=== PATIENT | female | born 2000 | race Caucasian/White ===

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

== ENCOUNTER 2018-01-14 15:11 | Emergency (ER) | payer OTHER ==
[2018-01-14 15:36] VITALS: BP 131/65
[2018-01-14] MEDS ORDERED: DIPHENHYDRAMINE HCL 25 MG CAPSULE PO ONE (15:52)
[2018-01-14] MEDS ORDERED: FAMOTIDINE 20 MG TABLET PO ONE (15:52)
[2018-01-14] MEDS ORDERED: PREDNISONE 20 MG TABLET PO ONE (15:52)
--- NOTE | 2018-01-14 15:54 | ER Document Report ---
HPI - HPI Patient complains to provider of: wasp sting Onset: Other - 2:30 Onset/Duration: Persistent Quality of pain: Achy Pain Level: 2 Context: Patient states that she was stung to the left upper back area around 230 by a wasp. Patient states she has had allergic reactions to stings in the past. Patient states she took a single tablet of Benadryl at home. Patient complains of left upper back pain. Patient without any difficulty breathing or swallowing. Associated Symptoms: Other - Left upper back pain Exacerbated by: Movement Relieved by: Denies Similar symptoms previously: Yes Recently seen / treated by doctor: No - ROS ROS below otherwise negative: Yes Systems Reviewed and Negative: Yes All other systems reviewed and negative - CONSTITUTIONAL Constitutional: DENIES: Fever - CARDIOVASCULAR Cardiovascular: DENIES: Chest pain - RESPIRATORY Respiratory: DENIES: Trouble Breathing, Coughing - GASTROINTESTINAL Gastrointestinal: DENIES: Patient vomiting - MUSCULOSKELETAL Musculoskeletal: REPORTS: Back Pain - DERM Skin Color: Erythema Past Medical History - General Information source: Patient - Social History Smoking Status: Never Smoker Frequency of alcohol use: None Drug Abuse: None Occupation: None Lives with: Family Family History: Reviewed & Not Pertinent Patient has suicidal ideation: No Patient has homicidal ideation: No - Medical History Medical History: Negative Renal/ Medical History: Denies: Hx Peritoneal Dialysis Surgical Hx: Negative Vertical Provider Document - CONSTITUTIONAL Agree With Documented VS: Yes Exam Limitations: No Limitations General Appearance: WD/WN, No Apparent Distress - INFECTION CONTROL TRAVEL OUTSIDE OF THE [place] IN LAST 30 DAYS: No - HEENT HEENT: Atraumatic, Normal ENT Exam, Normocephalic Notes: No angioedema, no potential airway compromise - NECK Neck: Normal Inspection, Supple - RESPIRATORY Respiratory: Breath Sounds Normal, No Respiratory Distress - CARDIOVASCULAR Cardiovascular: Regular Rate, Regular Rhythm, No Murmur - BACK Back: Normal Inspection - MUSCULOSKELETAL/EXTREMETIES Musculoskeletal/Extremeties: ALVARO MADRID - NEURO Level of Consciousness: Awake, Alert, Appropriate Motor/Sensory: No Motor Deficit - DERM Integumentary: Warm, Dry Notes: Small patch of erythema to left upper back area measuring about 2 cm diameter, no hives, no urticaria Course - Vital Signs Vital signs: Temp Pulse Resp BP Pulse Ox 98.8 F 80 18 131/65 H 99 01/14/18 15:24 01/14/18 15:24 01/14/18 15:24 01/14/18 15:24 01/14/18 15:24 Discharge - Discharge Clinical Impression: Wasp sting Qualifiers: Encounter type: initial encounter Injury intent: undetermined intent Qualified Code(s): T63.464A - Toxic effect of venom of wasps, undetermined, initial encounter Condition: Stable Disposition: HOME, SELF-CARE Instructions: Use of Diphenhydramine, Insect Sting ([facility]), Steroid Medication Additional Instructions: Return immediately for any new or worsening symptoms Followup with your primary care provider, call tomorrow to make a followup appointment Take Benadryl [id number] with your symptoms Prescriptions: Epinephrine [Epipen 2-Esau] 0.3 mg IM ASDIR PRN #1 unit PRN Reason: Famotidine [Pepcid 20 mg Tablet] 20 mg PO BID #12 tablet Prednisone [Deltasone 10 mg Tablet] 10 mg PO ASDIR PRN #21 tablet PRN Reason: Referrals: [facility] [Provider Group] - Follow up as needed
== END 2018-01-14 16:06 | disposition home or self-care (01) ==
LOC: ER 15:11
DX: T63.461A Toxic effect of venom of wasps, accidental (unintentional), initial encounter (principal); M54.6 Pain in thoracic spine; X58.XXXA Exposure to other specified factors, initial encounter
CPT/HCPCS: 99282; J7512

== ENCOUNTER 2019-04-01 12:09 | Outpatient (CLI) | payer OTHER ==
--- NOTE | 2019-04-01 13:21 | Non Stress Test Report ---
Non Stress Test Datetime Report Generated by CPN: 04/01/2019 13:20 DEMOGRAPHIC Test Number: 1 EGA NST: 36.3 INDICATION Indication for Study: Ordered by Provider VITAL SIGNS Temperature - NST: 98.2 Pulse - NST: 89 RESP - NST: 16 NBPSYS NST: 116 NBPDIA NST: 65 MONITORING Monitor Explained: Monitor Explained; Test Explained; Patient Verbalized Understanding Time on Monitor: 04/01/2019 12:21 Time off Monitor: 04/01/2019 13:18 NST Duration: 57 NST INTERVENTIONS NST Interventions: PO Hydration Physician Notified NST: J. Cavazos, CNM BABY A: [id number] BABY A Movement : Present Contraction Frequency : 0 FHR Baseline : 150 Accelerations : 15X15 Decelerations : None Variability : Moderate 6-25bpm NST Review: Meets Criteria for Reactive NST NST Review and Verified By : Maribell Stanley RN NST Results: Reactive NST REPORT Report Trigger: Send Report
== END 2019-04-01 13:20 | disposition home or self-care (01) ==
LOC: LC 12:09
PROVIDERS: ATTEND Obstetrics & Gynecology
PROC: 4A1HXCZ Monitoring of Products of Conception, Cardiac Rate, External Approach (ICD-10-PCS; principal; 2019-04-01)
DX: Z34.83 Encounter for supervision of other normal pregnancy, third trimester (principal)
CPT/HCPCS: 59025

== ENCOUNTER 2019-04-17 00:21 | Outpatient (CLI) | payer OTHER ==
[2019-04-17 00:55] LABS: APPEARANCE,URINE CLEAR; BILIRUBIN,URINE NEGATIVE (NEGATIVE); COLOR,URINE YELLOW; GLUCOSE, URINE NEGATIVE (NEGATIVE); KETONES,URINE NEGATIVE (NEGATIVE); LEUKOCYTE ESTERASE,URINE TRACE (NEGATIVE); NITRITE,URINE NEGATIVE (NEGATIVE); PROTEIN,URINE NEGATIVE (NEGATIVE); URINE SPECIFIC GRAVITY 1.006; UROBILINOGEN,URINE NEGATIVE mg/dL (<2.0)
[2019-04-17 01:10] LABS: URINE AMPHETAMINES SCREEN NEGATIVE; URINE BARBITURATES SCREEN NEGATIVE; URINE BENZODIAZEPINES SCREEN NEGATIVE; URINE COCAINE SCREEN NEGATIVE; URINE MARIJUANA (THC) SCREEN NEGATIVE; URINE METHADONE SCREEN NEGATIVE; URINE PHENCYCLIDINE SCREEN NEGATIVE
--- NOTE | 2019-04-17 02:19 | Non Stress Test Report ---
Non Stress Test Datetime Report Generated by CPN: 04/17/2019 02:19 DEMOGRAPHIC EGA NST: 38.5 INDICATION Indication for Study: Ordered by Provider MONITORING Monitor Explained: Monitor Explained; Test Explained; Patient Verbalized Understanding Time on Monitor: 04/17/2019 00:40 Time off Monitor: 04/17/2019 01:13 NST Duration: 33 NST INTERVENTIONS NST Interventions: PO Hydration Physician Notified NST: Savage BABY A: [id number] BABY A Movement : Present Contraction Frequency : irregular FHR Baseline : 135 Accelerations : 15X15 Decelerations : None Variability : Moderate 6-25bpm NST Review: Meets Criteria for Reactive NST NST Review and Verified By : guru NAQVI Results: Reactive NST REPORT Report Trigger: Send Report
== END 2019-04-17 02:08 | disposition home or self-care (01) ==
LOC: LC 00:21
PROVIDERS: ATTEND Obstetrics & Gynecology
PROC: 4A1HXCZ Monitoring of Products of Conception, Cardiac Rate, External Approach (ICD-10-PCS; principal; 2019-04-17)
DX: O47.1 False labor at or after 37 completed weeks of gestation (principal); Z3A.38 38 weeks gestation of pregnancy
CPT/HCPCS: 59025; 80307; 81005; 84112

== ENCOUNTER 2019-05-07 05:46 | Emergency (ER) | payer OTHER ==
[2019-05-07] MEDS ORDERED: IBUPROFEN 600 MG TABLET PO ONE (07:00)
[2019-05-07 08:01] LABS: APPEARANCE,URINE SLIGHTLY-CLOUDY; BILIRUBIN,URINE NEGATIVE (NEGATIVE); COLOR,URINE YELLOW; GLUCOSE, URINE NEGATIVE (NEGATIVE); KETONES,URINE NEGATIVE (NEGATIVE); LEUKOCYTE ESTERASE,URINE MODERATE (NEGATIVE); NITRITE,URINE NEGATIVE (NEGATIVE); PROTEIN,URINE NEGATIVE (NEGATIVE); URINE SPECIFIC GRAVITY 1.016; UROBILINOGEN,URINE NEGATIVE mg/dL (<2.0)
[2019-05-07] MEDS ORDERED: CEPHALEXIN 500 MG CAPSULE PO ONE (09:01)
--- NOTE | 2019-05-07 09:08 | ER Document Report ---
ED General - General Chief Complaint: Low Back Pain Stated Complaint: LOWER BACK PAIN AND VOMITTING Time Seen by Provider: 05/07/19 07:00 TRAVEL OUTSIDE OF THE [place] IN LAST 30 DAYS: No - HPI Notes: This is a 19-year-old female who presents today with a complaint of lower back pain for the past 2 days. Patient also describes some urinary frequency and urgency. She denies any abdominal pain. She denies any trauma. She denies any bowel or bladder incontinence. She describes her symptoms as mild. Patient recently had a baby but she is not breast-feeding. No vaginal discharge or vaginal bleeding. She states she feels better now. - Related Data Allergies/Adverse Reactions: No Known Allergies Allergy (Verified 04/22/19 00:46) Past Medical History - Social History Smoking Status: Never Smoker Family History: Reviewed & Not Pertinent Patient has suicidal ideation: No Patient has homicidal ideation: No Renal/ Medical History: Denies: Hx Peritoneal Dialysis Review of Systems - Review of Systems Gastrointestinal: denies: Abdominal pain Genitourinary: Dysuria, Frequency Musculoskeletal: Back pain -: Yes All other systems reviewed and negative Physical Exam - Vital signs Vitals: Temp Pulse Resp BP Pulse Ox 98.4 F 71 18 146/100 H 100 05/07/19 05:51 05/07/19 05:51 05/07/19 05:51 05/07/19 05:51 05/07/19 05:51 - General General appearance: Appears well, Alert - Respiratory Respiratory status: No respiratory distress Chest status: Nontender Breath sounds: Normal Chest palpation: Normal - Cardiovascular Rhythm: Regular Heart sounds: Normal auscultation Murmur: No - Abdominal Inspection: Normal Distension: No distension Bowel sounds: Normal Tenderness: Nontender Organomegaly: No organomegaly - Back Back: Normal, Other - Slight paravertebral tenderness/spasms. No midline tenderness. No step-offs. Negative straight leg raise test. No saddle anesthesia. - Neurological Neuro grossly intact: Yes Cognition: Normal Orientation: AAOx4 Paige Coma Scale Eye Opening: Spontaneous [place] Coma Scale Verbal: Oriented [place] Coma Scale Motor: Obeys Commands [place] Coma Scale Total: 15 Speech: Normal Motor strength normal: LUE, RUE, LLE, RLE Sensory: Normal Course - Re-evaluation Re-evalutation: 05/07/19 08:06 Differential diagnosis includes lumbar strain versus UTI. 0856 Patient reevaluated. Patient is doing well. She feels much better. Urinalysis consistent with UTI. We will put her on Keflex. She is stable for discharge. - Vital Signs Vital signs: Temp Pulse Resp BP Pulse Ox 98.4 F 71 18 146/100 H 100 05/07/19 05:51 05/07/19 05:51 05/07/19 05:51 05/07/19 05:51 05/07/19 05:51 - Laboratory Laboratory results interpreted by me: 05/07/19 07:00 Ur Leukocyte Esterase MODERATE H Discharge - Discharge Clinical Impression: Acute UTI Lumbar strain Qualifiers: Encounter type: initial encounter Qualified Code(s): S39.012A - Strain of muscle, fascia and tendon of lower back, initial encounter Disposition: HOME, SELF-CARE Instructions: Low Back Pain ([facility]), Urinary Tract Infection ([facility]) Prescriptions: Cephalexin Monohydrate [Keflex 500 mg Capsule] 500 mg PO TID 10 Days #30 capsule Naproxen 500 mg PO BID PRN #14 tablet PRN Reason: Referrals: [facility] [NO LOCAL MD] - Follow up as needed
[2019-05-07 09:20] VITALS: BP 142/91
== END 2019-05-07 09:20 | disposition home or self-care (01) ==
LOC: ER 05:46
DX: N39.0 Urinary tract infection, site not specified (principal); M54.5 Low back pain; R11.10 Vomiting, unspecified; R35.0 Frequency of micturition; R39.15 Urgency of urination; R30.0 Dysuria
CPT/HCPCS: 81001; 99283

== ENCOUNTER 2019-06-04 17:49 | Emergency (ER) | payer OTHER ==
[2019-06-04] MEDS ORDERED: NORMAL SALINE 1000 ML 1,000 ML IV ONE (18:34)
[2019-06-04] MEDS ORDERED: ONDANSETRON HCL INJ/PF 4 MG/2 ML SDV IV ONE (18:34)
[2019-06-04] MEDS ORDERED: FAMOTIDINE INJ/PF 20 MG/2 ML SDV IV ONE (18:34)
--- NOTE | 2019-06-04 18:39 | ER Document Report ---
ED Medical Screen (RME) - General Chief Complaint: Back Pain Stated Complaint: BACK PAIN, VOMITING Time Seen by Provider: 06/04/19 18:34 Primary Care Provider: TARIQ FLOOD MD [Primary Care Provider] - Follow up as needed Notes: Patient is a 19-year-old female with a history of acid reflux who presents emergency department with a chief complaint of back pain. Patient reports that over the past few days she has had some epigastric discomfort and acid reflux. Her reports she is gotten up multiple times throughout the night to take Tums for this. Patient reports the epigastric discomfort was radiating into her mid back. Patient reports 1 hour prior to arrival today she was standing upright when she felt a pop to the middle of her back and she began vomiting. Patient denies a fall or trauma. Patient denies any recent heavy lifting or injury at the time of her discomfort. Patient reports she has vomited multiple times over the past hour. Patient denies fever or urinary symptoms. TRAVEL OUTSIDE OF THE [place] IN LAST 30 DAYS: No - Related Data Allergies/Adverse Reactions: No Known Allergies Allergy (Verified 04/22/19 00:46) Past Medical History - Social History Chew tobacco use (# tins/day): No Frequency of alcohol use: None Drug Abuse: None Renal/ Medical History: Denies: Hx Peritoneal Dialysis Physical Exam - Vital signs Vitals: Temp Pulse Resp BP Pulse Ox 98.4 F 78 18 137/78 H 99 06/04/19 18:02 06/04/19 18:02 06/04/19 18:02 06/04/19 18:02 06/04/19 18:02 - Abdominal Distension: No distension Tenderness: Nontender - Back Notes: No CVA tenderness. Course - Re-evaluation Re-evalutation: 06/04/19 18:38 We will obtain basic labs, urinalysis and start an IV to give fluids and antinausea medication. Will give a dose of IV Pepcid. Patient is not tachycardic, hypotensive or currently febrile. I have greeted and performed a rapid initial assessment of this patient. A comprehensive ED assessment and evaluation of the patient, analysis of test results and completion of the medical decision making process will be conducted by additional ED providers. - Vital Signs Vital signs: Temp Pulse Resp BP Pulse Ox 98.4 F 78 18 137/78 H 99 06/04/19 18:26 06/04/19 18:02 06/04/19 18:26 06/04/19 18:02 06/04/19 18:26 Doctor's Discharge - Discharge Referrals: TARIQ FLOOD MD [Primary Care Provider] - Follow up as needed
[2019-06-04 19:49] LABS: ABSOLUTE BASOPHILS # (AUTO) 0.1 10^3/uL (0.0-0.2); ABSOLUTE EOSINOPHILS # (AUTO) 0.2 10^3/uL (0.0-0.6); ABSOLUTE LYMPHOCYTES (AUTO) 1.2 10^3/uL (0.5-4.7); ABSOLUTE MONOCYTES (AUTO) 0.6 10^3/uL (0.1-1.4); ABSOLUTE NEUT (AUTO) 13.3 10^3/uL (1.7-8.2); BASOPHILS % (AUTO) 0.4 % (0-2); HEMATOCRIT 36.2 % (36.0-47.0); HEMOGLOBIN 11.9 g/dL (12.0-15.5); LYMPHOCYTES % (AUTO) 7.9 % (13-45); MEAN CORPUSCULAR HEMOGLOBIN 27.4 pg (27.0-33.4); MEAN CORPUSCULAR HGB CONC 32.9 g/dL (32.0-36.0); MEAN CORPUSCULAR VOLUME 83 fl (80-97); MONOCYTES % (AUTO) 3.8 % (3-13); PLATELET COUNT 343 10^3/uL (150-450); RED BLOOD COUNT 4.35 10^6/uL (3.72-5.28); RED CELL DISTRIBUTION WIDTH 14.8 % (11.5-14.0); SEGMENTED NEUTROPHILS % (AUTO) 86.9 % (42-78); TOTAL CELLS COUNTED % (AUTO) 100 %; WHITE BLOOD COUNT 15.3 10^3/uL (4.0-10.5)
[2019-06-04 20:09] LABS: ALBUMIN 4.3 g/dL (3.5-5.0); ALKALINE PHOSPHATASE 136 U/L (38-126); ANION GAP 11 (5-19); ASPARTATE AMINO TRANSFERASE 163 U/L (14-36); BILIRUBIN,DIRECT 0.3 mg/dL (0.0-0.4); BILIRUBIN,TOTAL 0.7 mg/dL (0.2-1.3); BLOOD UREA NITROGEN 11 mg/dL (7-20); CALCIUM 9.3 mg/dL (8.4-10.2); CARBON DIOXIDE 27 mmol/L (22-30); CHLORIDE 103 mmol/L (98-107); GLUCOSE 97 mg/dL (75-110); POTASSIUM 4.5 mmol/L (3.6-5.0); TOTAL PROTEIN 7.3 g/dL (6.3-8.2)
[2019-06-04] MEDS ORDERED: MAG HYDROX/AL HYDROX/SIMETH SUSP 30 ML UDCUP PO ONE (20:54)
[2019-06-04] MEDS ORDERED: LIDOCAINE 2% VISCOUS SOLN 20 ML UDCUP PO ONE (20:54)
[2019-06-04] MEDS ORDERED: METOCLOPRAMIDE HCL ORAL SOLN 10 MG/10 ML UDCUP PO ONE (20:54)
[2019-06-04] MEDS ORDERED: MORPHINE SULFATE 10 MG/ML INJ IV ONE (21:12)
--- NOTE | 2019-06-04 21:29 | ER Document Report ---
ED GI/ - General Chief Complaint: Back Pain Stated Complaint: BACK PAIN, VOMITING Time Seen by Provider: 06/04/19 18:34 Primary Care Provider: [facility] [Provider Group] - 06/07/19 Notes: Patient is a 19-year-old female that comes to the emergency department for chief complaint of pain in her upper abdomen and vomiting. She states for the past 4 days she has had frequent reflux and she has also had episodes where she gets waves of pain in her abdomen, she points to the right upper abdomen. She also states that throughout her recent she would get intermittent pain in this area. However she states today was significantly worse than ever before with sharp pain just as she was finishing eating, this caused her to vomit several times. Pain radiated around to her back. Pain is improved now but not completely resolved. She states she was eating pasta with young and ranch. She denies fever/chills, lower abdominal pain, hematemesis. She denies any surgeries or daily medications. TRAVEL OUTSIDE OF THE [place] IN LAST 30 DAYS: No - Related Data Allergies/Adverse Reactions: No Known Allergies Allergy (Verified 04/22/19 00:46) Past Medical History - General Information source: Patient - Social History Smoking Status: Never Smoker Chew tobacco use (# tins/day): No Frequency of alcohol use: None Drug Abuse: None Lives with: Family Family History: Reviewed & Not Pertinent Patient has suicidal ideation: No Patient has homicidal ideation: No Renal/ Medical History: Denies: Hx Peritoneal Dialysis - Immunizations Immunizations up to date: Yes Hx Diphtheria, Pertussis, Tetanus Vaccination: Yes Review of Systems - Review of Systems Constitutional: No symptoms reported EENT: No symptoms reported Cardiovascular: No symptoms reported Respiratory: No symptoms reported Gastrointestinal: See HPI Genitourinary: No symptoms reported Female Genitourinary: No symptoms reported Musculoskeletal: No symptoms reported Skin: No symptoms reported Hematologic/Lymphatic: No symptoms reported Neurological/Psychological: No symptoms reported Physical Exam - Vital signs Vitals: Temp Pulse Resp BP Pulse Ox 98.4 F 78 18 137/78 H 99 06/04/19 18:02 06/04/19 18:02 06/04/19 18:02 06/04/19 18:02 06/04/19 18:02 - Notes Notes: GENERAL: Alert, interacts well. No acute distress. HEAD: Normocephalic, atraumatic. EYES: Pupils equal, round, and reactive to light. Extraocular movements intact. ENT: Oral mucosa moist, tongue midline. Oropharynx unremarkable. Airway patent. NECK: Full range of motion. Supple. Trachea midline. LUNGS: Clear to auscultation bilaterally, no wheezes, rales, or rhonchi. No respiratory distress. HEART: Regular rate and rhythm. No murmur ABDOMEN: Mild tenderness in the right upper quadrant, remaining abdomen completely benign. No guarding or rigidity. Normal bowel sounds. GENITOURINARY: Deferred EXTREMITIES: Moves all 4 extremities spontaneously. No edema, normal radial and dorsalis pedis pulses bilaterally. No cyanosis. BACK: no cervical, thoracic, lumbar midline tenderness. No saddle anesthesia, normal distal neurovascular exam. Moves all extremities in full range of motion. NEUROLOGICAL: Alert and oriented x3. Normal speech. Cranial nerves II through XII grossly intact. PSYCH: Normal affect, normal mood. SKIN: Warm, dry, normal turgor. No rashes or lesions noted. Course - Re-evaluation Re-evalutation: CBC shows leukocytosis at 15,000, nonspecific given vomiting. Patient has mild right upper quadrant tenderness on exam but no guarding. She is actually quite well-appearing. LFTs are mildly elevated. Bilirubin unremarkable, lipase unremarkable. No fever. Vital signs unremarkable. Right upper quadrant ultrasound showing cholelithiasis without evidence of obstruction or infection. I discussed with patient again. She states she feels much better. I discussed potential surgery consult versus follow-up outpatient, she states she would prefer to follow-up outpatient and set up her preferred time. I did discuss recommendations, follow-up, and return precautions with patient and significant other at length. They state understanding and agreement. - Vital Signs Vital signs: Temp Pulse Resp BP Pulse Ox 98.4 F 58 L 16 133/70 H 100 06/04/19 22:45 06/04/19 22:45 06/04/19 22:45 06/04/19 22:45 06/04/19 22:45 - Laboratory Result Diagrams: 06/04/19 19:30 06/04/19 19:30 Laboratory results interpreted by me: 06/04/19 06/04/19 06/04/19 19:30 19:30 21:05 WBC 15.3 H Hgb 11.9 L RDW 14.8 H Lymph % (Auto) 7.9 L Absolute Neuts (auto) 13.3 H Seg Neutrophils % 86.9 H AST 163 H Alkaline Phosphatase 136 H Urine Blood MODERATE H Discharge - Discharge Clinical Impression: Upper abdominal pain Cholelithiasis Qualifiers: Cholelithiasis location: gallbladder Cholecystitis presence: without cholecystitis Biliary obstruction: without biliary obstruction Qualified Code(s): K80.20 - Calculus of gallbladder without cholecystitis without obstruction Vomiting Qualifiers: Vomiting type: unspecified Vomiting Intractability: non-intractable Nausea presence: with nausea Qualified Code(s): R11.2 - Nausea with vomiting, unspecified Disposition: HOME, SELF-CARE Additional Instructions: You have gallstones. Your evaluation tonight was consistent with a gallbladder attack. Please call the surgical referral listed for close follow-up and additional management/surgery. Avoid fatty/fried/greasy foods as this will stimulate your gallbladder to contract and will likely cause similar pain. You have been provided with pain and nausea medication, ibuprofen 600 to 800 mg can really help with this as well, however if you develop severe pain, pain that will not resolve, uncontrolled vomiting, fever, or any other concerning or worsening symptoms return to the emergency department immediately. Prescriptions: Hydrocodone/Acetaminophen [[place] 5-325 mg Tablet] 1 - 2 tab PO ASDIR #10 tablet Ondansetron [Zofran Odt 4 mg Tablet] 1 - 2 tab PO Q4H PRN #15 tab.rapdis PRN Reason: For Nausea/Vomiting Referrals: [facility] [Provider Group] - 06/07/19
[2019-06-04 21:44] LABS: APPEARANCE,URINE CLEAR; BILIRUBIN,URINE NEGATIVE (NEGATIVE); COLOR,URINE YELLOW; GLUCOSE, URINE NEGATIVE (NEGATIVE); KETONES,URINE NEGATIVE (NEGATIVE); LEUKOCYTE ESTERASE,URINE NEGATIVE (NEGATIVE); NITRITE,URINE NEGATIVE (NEGATIVE); PROTEIN,URINE NEGATIVE (NEGATIVE); URINE SPECIFIC GRAVITY 1.008; UROBILINOGEN,URINE NEGATIVE mg/dL (<2.0)
--- NOTE | 2019-06-04 22:19 | RADIOLOGY REPORT (SQ) ---
US ABDOMEN LIMITED CLINICAL STATEMENT: RUQ pain COMPARISON: None FINDINGS: Aorta and IVC are within normal limits. Pancreas is within normal limits. Liver is mildly enlarged measuring 19.3 cm. No focal lesions. No biliary dilatation with CBD measuring 4 mm. Gallbladder is trace calculi. No significant wall thickening or pericholecystic fluid. Portal vein is patent with hepatopedal flow. No right hydronephrosis. IMPRESSION: Cholelithiasis. No evidence for acute cholecystitis. No biliary dilatation.
[2019-06-04] MEDS ORDERED: HYDROCODONE/ACETAMINOPHEN 5-325 MG (6 TAB/ER DISP) PO PRN (22:30)
[2019-06-04] MEDS ORDERED: ONDANSETRON ODT 4 MG TAB (6 TAB/ER DISP) PO PRN (22:31)
[2019-06-04 22:46] VITALS: BP 133/70
== END 2019-06-04 22:45 | disposition home or self-care (01) ==
LOC: ER 17:49
DX: K80.20 Calculus of gallbladder without cholecystitis without obstruction (principal); R10.10 Upper abdominal pain, unspecified; R11.2 Nausea with vomiting, unspecified; M54.9 Dorsalgia, unspecified
CPT/HCPCS: 99284; 96361; 96374; 96375; 36415; 83690; 85025; 81025; 80053; 81001; 76705; J3490; J2270; J2405; J7030; S0028

== ENCOUNTER 2019-07-08 12:44 | Day surgery (SDC) | payer OTHER ==
[2019-07-01 10:18] LABS: ALKALINE PHOSPHATASE 87 U/L (38-126); AMYLASE 62 U/L (30-110); ANION GAP 12 (5-19); ASPARTATE AMINO TRANSFERASE 44 U/L (14-36); BILIRUBIN,DIRECT 0.3 mg/dL (0.0-0.4); BILIRUBIN,TOTAL 0.5 mg/dL (0.2-1.3); BLOOD UREA NITROGEN 13 mg/dL (7-20); CALCIUM 9.8 mg/dL (8.4-10.2); CARBON DIOXIDE 22 mmol/L (22-30); CHLORIDE 108 mmol/L (98-107); GLUCOSE 81 mg/dL (75-110); POTASSIUM 4.7 mmol/L (3.6-5.0); TOTAL PROTEIN 6.8 g/dL (6.3-8.2)
[2019-07-05 13:10] LABS: HEMATOCRIT 34.9 % (36.0-47.0); HEMOGLOBIN 11.8 g/dL (12.0-15.5); MEAN CORPUSCULAR HEMOGLOBIN 27.4 pg (27.0-33.4); MEAN CORPUSCULAR HGB CONC 33.7 g/dL (32.0-36.0); MEAN CORPUSCULAR VOLUME 81 fl (80-97); PLATELET COUNT 372 10^3/uL (150-450); RED BLOOD COUNT 4.29 10^6/uL (3.72-5.28); RED CELL DISTRIBUTION WIDTH 15.2 % (11.5-14.0); WHITE BLOOD COUNT 7.4 10^3/uL (4.0-10.5)
[~2019-07-08 12:44] MED LIST: CEFAZOLIN 1 GM/D5W RTU 1 GM/50 ML RTUPB IV PRN; CEFAZOLIN SODIUM 1 GM in DEXTROSE 5%-WATER 50 ML IV SCH; DEXAMETHASONE SOD PHOSPHATE INJ 4 MG/1 ML VIAL ONE; GLYCOPYRROLATE 1 MG/5 ML VIAL ONE; KETOROLAC TROMETHAMINE 60 MG/2 ML SDV ONE; LACTATED RINGERS 1000 ML IV PRN; LIDOCAINE 2% INJ-PF (20 MG/ML) 2 ML AMPUL ONE; METRONIDAZOLE 500 MG/NS RTU 500 MG/100 ML RTUPB IV PRN; NEOSTIGMINE METHYLSULFATE 10 MG/10 ML VIAL ONE; ONDANSETRON HCL INJ/PF 4 MG/2 ML SDV ONE; ROCURONIUM BROMIDE INJ 50 MG/5 ML VIAL IV ONE; SUCCINYLCHOLINE CHLORIDE INJ 200 MG/10 ML VIAL ONE
[2019-07-08] MEDS ORDERED: METRONIDAZOLE 500 MG/NS RTU 500 MG/100 ML RTUPB IV ONE (13:42)
[2019-07-08] MEDS ORDERED: CEFAZOLIN INJ 1 GM VIAL ONE (13:42)
[2019-07-08] MEDS ORDERED: BUPIVACAINE INJ/PF LIPOSOME/PF 266 MG/20 ML SDV ONE (13:48)
[2019-07-08] MEDS ORDERED: FENTANYL CITRATE INJ/PF 100 MCG/2 ML AMPUL ONE (13:59)
[2019-07-08] MEDS ORDERED: PROPOFOL INJ 200 MG/20 ML VIAL IV ONE (14:00)
[2019-07-08] MEDS ORDERED: MIDAZOLAM 2 MG/2 ML INJ ONE (14:00)
[2019-07-08] MEDS ORDERED: FAMOTIDINE INJ/PF 20 MG/2 ML SDV IV ONE (14:13)
[2019-07-08] MEDS ORDERED: SCOPOLAMINE HYDROBROMIDE 1.5 MG PATCH.TD72 ONE (14:13)
[2019-07-08] MEDS ORDERED: PROMETHAZINE HCL INJ 25 MG/1 ML VIAL IV PRN (15:08)
[2019-07-08] MEDS ORDERED: MEPERIDINE HCL/PF INJ 25 MG/1 ML DISP.SYRIN IV PRN (15:08)
[2019-07-08] MEDS ORDERED: MORPHINE SULFATE 10 MG/ML INJ IV PRN (15:08)
[2019-07-08] MEDS ORDERED: FENTANYL CITRATE INJ/PF 100 MCG/2 ML AMPUL IV PRN (15:08)
[2019-07-08] MEDS ORDERED: DIPHENHYDRAMINE HCL 50 MG/ML VIAL IV PRN (15:08)
[2019-07-08] MEDS ORDERED: MORPHINE SULFATE 10 MG/ML INJ ONE (15:24)
--- NOTE | 2019-07-08 15:42 | Operative Report ---
Nonrecallable Operative Report DATE OF SURGERY: 07/08/19 PREOPERATIVE DIAGNOSIS: Symptomatic cholelithiasis POSTOPERATIVE DIAGNOSIS: Symptomatic cholelithiasis OPERATION: Laparoscopic cholecystectomy with intraoperative cholangiograms SURGEON: CURRY ABERNATHY ANESTHESIA: GA TISSUE REMOVED OR ALTERED: Gallbladder COMPLICATIONS: None ESTIMATED BLOOD LOSS: 25 cc INTRAOPERATIVE FINDINGS: See dictation PROCEDURE: After obtaining informed consent, the patient was taken to the operating room. General Anesthesia was induced; the arms were extended, and the abdomen was exposed, and prepped and draped in a sterile fashion. Instrumentation was set up for laparoscopic cholecystectomy. Surgical plan and surgical timeout were conducted. A vertical incision was made above the umbilicus, and a verres needle was inserted uneventfully into the peritoneal cavity. Pneumoperitoneum was established. The verres needle was removed and a 10 mm trocar was inserted and a 10 mm approximately laparoscope was inserted. Visualization of the peritoneal cavity confirmed safe uneventful entry. Under direct visualization 3 additional 5 mm ports were established, one in the subxiphoid position and second in the subcostal position. Visualization of the hepatobiliary anatomy revealed no anatomic variations. A grasper was placed on the fundus of the gallbladder and the gallbladder is elevated over the right surface of the liver; a second grasper was used to grasp the infundibulum of the gallbladder. The neck of the gallbladder and junction with the cystic duct was dissected out. The Cystic artery was in its usual location medial and cephalad to the cystic duct. The cystic artery was surrounded with a right angle clamp, clipped twice proximally and divided with laparoscopic scissors. We now opened the triangle of Calot by dividing the peritoneal reflection on both the medial and lateral sides of the cystic duct infundibular junction. The critical view was obtained. We now milked the cystic duct of any possible stones, clipped the cystic duct proximally and obtained a intraoperative cholangiogram which showed good flow into the duodenum with no evidence of stones in the common bile duct. We then placed 2 endoclips on the stay side of the cystic duct and divided it. The gallbladder was now removed from the undersurface of the liver using hook cautery dissection. Graspers were repositioned and the gallbladder was removed uneventfully from the abdominal cavity through the super umbilical port site incision. The specimen was examined, then passed off to pathology for permanent analysis. We returned to the peritoneal cavity check for bleeding, and evidence of bile leak, and there was none. We Confirmed satisfactory placement of clips on cystic duct and cystic artery were secured . At this point we felt the operation was complete. The subcutaneous tissue was then anesthetized with quarter percent Marcaine Sponge and needle counts are correct. All ports removed under direct visualization pneumoperitoneum evacuated, and 5 mm port wounds closed with 3-0 Vicryl suture, benzoin and Steri-Strips. The patient was extubated, and taken to the recovery room in stable condition.
[2019-07-08] MEDS ORDERED: OXYCODONE-ACETAMINOPHEN 5-325 MG TABLET PO PRN (15:44)
--- NOTE | 2019-07-08 15:44 | Discharge Summary ---
Discharge Summary (SDC) - Discharge Final Diagnosis: Symptomatic cholelithiasis Date of Surgery: 07/08/19 Discharge Date: 07/08/19 Condition: Good Referrals: MERYL MALONE DO [Primary Care Provider] - Discharge Diet: As Tolerated Discharge Activity: Activity As Tolerated, No Lifting Over 10 Pounds Report the Following to Your Physician Immediately: Nausea, Vomiting, Yellow Skin, Fever over 101 Degrees, Unusual Bleeding - Patient is a follow-up appointment with me 10 to 14 days after surgery
[2019-07-08] MEDS ORDERED: OXYCODONE-ACETAMINOPHEN 5-325 MG TABLET ONE (16:46)
[2019-07-08 18:05] VITALS: BP 103/65
== END 2019-07-08 17:45 | disposition home or self-care (01) ==
LOC: OROUT 12:44
PROVIDERS: ATTEND Surgery
DX: K80.10 Calculus of gallbladder with chronic cholecystitis without obstruction (principal); E16.2 Hypoglycemia, unspecified; R73.9 Hyperglycemia, unspecified
CPT/HCPCS: 86900; 86901; 36415 ×3; 86850; 82150; 85027; 81025; 80076; 80048; 88304 ×2; 00790; 47562; Q9967; J2250; J0690; J3490 ×4; J1100; J1885; J3010; J2270; J2710; J0330; J2405; J2704; S0028; C9290; 790